=== PATIENT | male | born 1990 | race Caucasian/White ===

== ENCOUNTER 2020-01-26 01:24 | Emergency (ER) | payer SELFPAY ==
[2020-01-26 01:27] VITALS: BP 140/72; PULSE 63; RESP 18; TEMP 36.3; O2SAT 98
[2020-01-26] MEDS: KETOROLAC (*BKC) 60 MG/2 ML VIAL IM (02:14)
[2020-01-26] MEDS: LIDOCAINE HCL 2% VISC SOLN 15 ML UDC PO (02:15)
--- NOTE | 2020-01-26 02:16 | ED_ITS ---
HPI - Dental/Oral General Chief complaint: Dental/Oral Stated complaint: dental Time Seen by Provider: 01/26/20 01:56 Source: patient Mode of arrival: ambulatory Limitations: no limitations History of Present Illness HPI Narrative: This patient is a 29 year old male who presents for evaluation of left lower dental pain. He states he develop sharp shooting pain to his left lower tooth today. He states the pain is causing his left ear to hurt. He has rinsed out his mouth and taken tylenol without relief. He thinks his cap came off his took. MD Complaint: tooth pain Related Data Allergies Allergy/AdvReac Type Severity Reaction Status Date / Time No Known Allergies Allergy Mild Verified 04/02/10 13:56 Review of Systems Review of Systems: All systems reviewed & are unremarkable except as noted in HPI and below Constitutional: Constitutional: Denies chills and Denies fever(s) ENT: Denies dysphagia and Denies sore throat PMFSH Past Medical History Medical History (Updated 01/26/20 @ 03:03 by Shelley Jules MD) Patient denies medical problems Social History Social History (Updated 01/26/20 @ 02:17 by Shelley Jules MD) Smoking status: Current every day smoker Exam Const: General: no acute distress and alert Orientation/consciousness: patient oriented x3 HENMT: Head: normocephalic and atraumatic Ears: hearing grossly normal bilaterally and TM's normal bilaterally Face and sinus: face symmetric Mouth: Yes lip normal and Yes tongue normal Teeth and gingiva: poor dentition (#19 with food in ) Eyes: EOM: EOMs intact bilaterally Resp: Effort & Inspection: normal respiratory effort Skin: General skin exam: normal color Rashes: no rashes Neuro: General: patient oriented x3 and moves all extremities Extrem: General: normal to inspection Psych: Mental Status: mental status grossly normal Course Vital Signs Vital signs: Vital Signs Temperature 97.4 F L 01/26/20 01:27 Pulse Rate 63 01/26/20 01:27 Respiratory Rate 18 01/26/20 01:27 Blood Pressure 140/72 01/26/20 01:27 Pulse Oximetry 98 01/26/20 01:27 Temperature 98.3 F 01/26/20 03:09 Pulse Rate 80 01/26/20 03:09 Respiratory Rate 19 06/21/20 03:09 Blood Pressure 137/88 01/26/20 03:09 Pulse Oximetry 100 01/26/20 03:09 Discharge Plan Discharge Clinical Impression: Dental caries Patient Disposition: Home, Self-Care Condition: Stable Instructions: Antibiotic Form, Dental Abscess (ED), Toothache (ED) Additional Instructions: Call Dr. Cr James at [phone] who is a dentist . OR you can call your dentist. Prescriptions: New tramadol 50 mg tablet 50 mg PO Q6H PRN (Reason: pain) Qty: 10 RF: 0 amoxicillin 875 mg tablet 875 mg PO Q12H Qty: 14 RF: 0 Follow-up/Referrals: PHYSICIAN,[employer] [Primary Care Provider] - Stand Alone Forms: Work/School Release IP Discharge Date/Time: 01/26/20 03:10
[2020-01-26 03:09] VITALS: BP 137/88; PULSE 80; RESP 19; TEMP 36.8; O2SAT 100
== END 2020-01-26 03:10 | disposition home or self-care (01) ==
PROVIDERS: Emergency Provider General Practice
DX: K02.9 Dental caries, unspecified (principal); F17.200 Nicotine dependence, unspecified, uncomplicated
CPT/HCPCS: 96372; 99283; J1885